=== PATIENT | male | born 1950 | race Caucasian/White ===

== ENCOUNTER 2017-02-05 09:05 | Outpatient (CLI) | payer BC ==
[2017-02-05] MEDS ORDERED: ALBUTEROL NEB 2.5 MG/3 ML INH ONE (09:54)
== END 2017-02-05 09:06 | disposition home or self-care (01) ==
DX: R06.09 Other forms of dyspnea (principal)
CPT/HCPCS: 94060; 94729; J7613

== ENCOUNTER 2017-02-22 07:58 | Outpatient (CLI) | payer BC | END 2017-02-22 07:59 | disposition home or self-care (01) | DX: E78.00 Pure hypercholesterolemia, unspecified (principal); J30.2 Other seasonal allergic rhinitis; M81.0 Age-related osteoporosis without current pathological fracture ==

== ENCOUNTER 2017-05-30 08:00 | Outpatient (CLI) | payer BC ==
[2017-05-30 12:39] LABS: CHOL/HDL RATIO 3.1 (<5.0); CHOLESTEROL 151 mg/dL; HDL CHOLESTEROL 49 mg/dL; LDL/HDL RATIO 1.8 (<3.6); TRIGLYCERIDES 66 mg/dL; VLDL CHOLESTEROL 13 mg/dL
== END 2017-05-30 08:01 | disposition home or self-care (01) ==
LOC: LAB.F 08:00
PROVIDERS: ATTEND Internal Medicine
DX: E78.00 Pure hypercholesterolemia, unspecified (principal)
CPT/HCPCS: 36415; 80061; 84460

== ENCOUNTER 2018-05-13 09:08 | Outpatient (CLI) | payer OTHER ==
[2018-05-13 18:11] LABS: ALT ALANINE AMINOTRANSFERASE 28 IU/L (10-60); AST ASPARTATE AMINOTRANSFERASE 23 IU/L (10-42); CHOL/HDL RATIO 2.9 (<5.0); CHOLESTEROL 159 mg/dL; HDL CHOLESTEROL 54 mg/dL; LDL CHOLESTEROL,CALCULATED 86 mg/dL; LDL/HDL RATIO 1.6 (<3.6); VLDL CHOLESTEROL 19 mg/dL
== END 2018-05-13 09:09 | disposition home or self-care (01) ==
LOC: LAB.F 09:08
PROVIDERS: ATTEND Internal Medicine
DX: E78.00 Pure hypercholesterolemia, unspecified (principal)
CPT/HCPCS: 36415; 80061; 83721; 84450; 84460

== ENCOUNTER 2018-05-15 08:31 | Outpatient (CLI) | payer OTHER ==
--- NOTE | 2018-05-15 12:29 | DEXA Report ---
Procedure Date: 05/15/2018 Accession Number: [id number] / [id number] Procedure: DEX - Dexa Spine and/or Hip CPT Code: FULL RESULT: EXAM: Dexa Spine and/or Hip DATE: 05/15/2018 9:21 AM CLINICAL HISTORY: OSTEOPOROSIS, DRUG INDUCED TECHNIQUE: Dual energy x-ray absorptiometry (DXA) was performed on a [employer] System. Regions measured are the AP Spine, femoral neck, and if needed forearm. COMPARISON: None. In accordance with the International Society for Clinical Densitometry (ISCD) guidelines, data from previous exams may be reanalyzed using current recommendations and techniques. This is done to allow a more accurate basis for comparison with the current study. FINDINGS: The data for the lumbar spine is as follows: BMD (g/cm/cm) T-SCORE Z-SCORE REGION L1 0.869 -2.4 -2.2 L2 1.041 -1.7 -1.4 L3 1.223 -0.1 0.1 L4 1.311 0.6 0.8 TOTAL 1.124 -0.8 -0.6 NOTE: All evaluable vertebrae are used for classification The data for the hip is as follows: BMD (g/cm/cm) T-SCORE Z-SCORE REGION Neck 0.866 -1.6 -0.6 TOTAL 0.961 -1.0 -0.5 NOTE: The femoral neck or total proximal femur, whichever is lowest, is used for classification. IMPRESSION: THE WHO CLASSIFICATION BASED ON THE INTERNATIONAL REFERENCE STANDARD IS OSTEOPENIA. THE FRACTURE RISK IS INCREASED. RECOMMENDATION: Patients with diagnosis of osteoporosis or osteopenia should have regular bone mineral density assessment. For those eligible for Medicare, routine testing is allowed once every 2 years. Testing frequency can be increased for patients who have rapidly progressing disease or for those who are receiving medical therapy to restore bone mass. COMMENT: World Health Organization (WHO) definitions for osteoporosis and osteopenia: NORMAL BMD: T-score at -1.0 or higher, fracture risk is low OSTEOPENIA BMD: T-score between -1.0 and -2.5, fracture risk is increased. OSTEOPOROSIS BMD: T-score at -2.5 or lower, fracture risk is high. National Osteoporosis Foundation recommends: 1. Obtain adequate dietary calcium (at least 1200 mg per day) and vitamin D (400-800 international units per day). 2. Participate, as appropriate, in regular weightbearing and muscle-strengthening exercise. 3. Avoid tobacco use and reduce alcohol and caffeine intake. 4. For more detailed information see the website at www.NOF.org.
== END 2018-05-15 08:32 | disposition home or self-care (01) ==
LOC: DI 08:31
PROVIDERS: ATTEND Internal Medicine
DX: M85.88 Other specified disorders of bone density and structure, other site (principal)
CPT/HCPCS: 77080

== ENCOUNTER 2018-11-14 07:11 | Outpatient (CLI) | payer OTHER ==
[2018-11-14 11:54] LABS: ALT ALANINE AMINOTRANSFERASE 33 IU/L (10-60); AST ASPARTATE AMINOTRANSFERASE 23 IU/L (10-42); CHOL/HDL RATIO 3.2 (<5.0); CHOLESTEROL 144 mg/dL; HDL CHOLESTEROL 45 mg/dL; LDL CHOLESTEROL,CALCULATED 77 mg/dL; LDL/HDL RATIO 1.7 (<3.6); VLDL CHOLESTEROL 22 mg/dL
== END 2018-11-14 07:12 | disposition home or self-care (01) ==
LOC: LAB.F 07:11
PROVIDERS: ATTEND Internal Medicine
DX: E78.00 Pure hypercholesterolemia, unspecified (principal)
CPT/HCPCS: 36415; 80061; 83721; 84450; 84460